=== PATIENT | female | born 1975 | race Caucasian/White ===

== ENCOUNTER 2016-07-28 09:28 | Emergency (ER) | payer OTHER ==
[~2016-07-28] VITALS: Ht 167.6 cm; Wt 70.0 kg
[~2016-07-28 09:28] MED LIST: CLON1 PO; LURA20TA PO; VIST50CA PO
[2016-07-28] MEDS ORDERED: SODIUM CHLOR 0.9% 1000 ML INJ 1,000 ML IV SCH (10:02)
[2016-07-28 10:11] VITALS: BP 150/95; PULSE 54; RESP 14; TEMP 98.2; O2SAT 98
[2016-07-28] MEDS ORDERED: ceFAZolin 2 GM PREMIX 50 ML IV ONE (10:15)
[2016-07-28] MEDS ORDERED: DIPHTH/TETANUS/ACEL PERTUSSIS (BOOSTER) 0.5 ML VIAL/PFS IM ONE (10:15)
[2016-07-28] MEDS ORDERED: ONDANSETRON HCL 4 MG/2 ML VIAL IVP ONE (10:15)
[2016-07-28] MEDS ORDERED: SODIUM CHLORIDE 0.9% FLUSH 10 ML FLUSH IVF PRN (10:15)
[2016-07-28 10:19] VITALS: BP 150/95; PULSE 50; PULSE 55; RESP 16; TEMP 98.2; O2SAT 98
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
[2016-07-28 11:45] LABS: AUTOMATED NEUTROPHIL # 15.9 TH/MM3 (1.8-7.7); BASOPHIL % 0.2 % (0.0-2.0); EOSINOPHIL # 0.1 TH/MM3 (0-0.4); EOSINOPHIL % 0.5 % (0.0-4.0); HEMATOCRIT 39.1 % (35.0-46.0); HEMO FLAGS DIFF FINAL; LYMPH % 10.6 % (9.0-44.0); LYMPHOCYTE # 2.1 TH/MM3 (1.0-4.8); MEAN CORPUSCULAR HEMOGLOBIN 28.7 PG (27.0-34.0); MONO % 7.1 % (0.0-8.0); NEUT % 81.6 % (16.0-70.0); PLATELET COUNT 296 TH/MM3 (150-450); RED CELL DISTRIBUTION WIDTH 13.2 % (11.6-17.2); WHITE BLOOD COUNT 19.5 TH/MM3 (4.0-11.0)
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
[2016-07-28 11:55] LABS: AMPHETAMINE, URINE NEG (NEG); BARBITURATES, URINE NEG (NEG); COCAINE, URINE POS (NEG)
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
[2016-07-28 12:10] LABS: BACTERIA, URINE MANY /hpf; BLOOD, URINE SMALL (NEG); COMMENT (UR) CATH-CULTURE IND; CULTURE IF INDICATED CATH CULTURE IND; GLUCOSE,URINE NEG (NEG); KETONE, URINE NEG (NEG); MUCUS URINE FEW /lpf (OCC); PH, URINE 5.5 (5.0-8.5); SQUAMOUS EPITHELIAL CELL URINE 2 /hpf (0-5); URINE COLOR YELLOW (YELLW/STRAW)
[2016-07-28 12:11] LABS: NITRITE,URINE POS (NEG)
[2016-07-28 12:29] VITALS: BP 157/103; PULSE 54; RESP 17; O2SAT 98
[2016-07-28] MEDS ORDERED: BACT800T5 PO (12:43)
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
[2016-07-28] MEDS ORDERED: LIDOCAINE 2%/EPINEPHrine 1:100,000 30ML MDV INFIL ONE (12:45)
[2016-07-28] MEDS ORDERED: IBUPROFEN 600 MG TAB PO ONE (13:30)
[2016-07-28] MEDS ORDERED: LIDOCAINE 1%/EPINEPHrine 1:100,000 SOLN 20 ML VIAL ONE (13:32)
[2016-07-28 14:58] VITALS: BP 167/92
== END 2016-07-28 15:00 | disposition home or self-care (01) ==
LOC: NEPE 09:28
DX: F31.9 Bipolar disorder, unspecified (principal); S59.901A Unspecified injury of right elbow, initial encounter; S99.911A Unspecified injury of right ankle, initial encounter; S00.81XA Abrasion of other part of head, initial encounter; S00.01XA Abrasion of scalp, initial encounter; N30.90 Cystitis, unspecified without hematuria; V49.50XA Passenger injured in collision with unspecified motor vehicles in traffic accident, initial encounter; Y93.9 Activity, unspecified; Y92.9 Unspecified place or not applicable; Y99.9 Unspecified external cause status; R55 Syncope and collapse; F19.10 Other psychoactive substance abuse, uncomplicated; F17.210 Nicotine dependence, cigarettes, uncomplicated
CPT/HCPCS: 70450; 71010; 72125; 72170; 73080; 73610; 73630; 80307; 81001; 84703; 85025; 87077; 87086; 87186; 90471; 90715; 96361; 96374; 96375; 99285; J0690; J2405; J7030; L1906; P9612

== ENCOUNTER 2017-01-29 11:41 | Emergency (ER) | payer SELFPAY ==
[~2017-01-29] VITALS: Ht 167.6 cm; Wt 80.0 kg
[~2017-01-29 11:41] MED LIST changes: +BACT800T5 PO; -CLON1 PO; -LURA20TA PO; -VIST50CA PO
[2017-01-29 11:44] VITALS: BP 156/102; PULSE 75; RESP 18; TEMP 98.5; O2SAT 98
[2017-01-29 11:56] VITALS: BP 144/89; PULSE 74; RESP 18; O2SAT 98
--- NOTE | 2017-01-29 12:07 | PD ---
HPI Chief Complaint: Alcohol/Drug Intoxication Time Seen by Provider: 11:56 Travel History International Travel<30 days: No Contact w/Intl Traveler<30days: No Traveled to known affect area: No History of Present Illness HPI 41-year-old female complains of heroin withdrawal. Last usage was 24 hours prior. Total body pain, most notably involving the hands, coupled with a sensation of anxiety and "alligator skin" on the main complaints. She also complains of a axillary abscess which is the third time in a row she's had a right axillary abscess. No fever. No chest pain or shortness of breath. PFSH Past Medical History Bipolar Disorder: Yes Cancer: No (Patient denies ) Cardiovascular Problems: No (Patient denies ) Diabetes: No Diminished Hearing: No Headaches: No (Patient denies ) Psychiatric: Yes (Bipolar ) Seizures: No (Patient denies ) Influenza Vaccination: No ?: Not Menopausal: No Past Surgical History Cholecystectomy: Yes Hysterectomy: Yes Social History Alcohol Use: No Tobacco Use: Yes (1/2 PPD) Substance Use: Yes (HEROIN) Allergies-Medications (Allergen,Severity, Reaction): Coded Allergies: bee venom protein (honey bee) (Unverified Allergy, Intermediate, swelling , 01/29/17) clindamycin (Unverified Allergy, Intermediate, facial swelling, 01/29/17) penicillin G (Unverified Allergy, Intermediate, 01/29/17) rash, gi upset *MDRO Multi-Drug Resistant Organism (Verified Adverse Reaction, Unknown, 01/29/17) ESBL E.Coli (urine)-07/28/16 Reported Meds & Prescriptions Reported Meds & Active Scripts Active Clonidine (Clonidine HCl) 0.1 Mg Tab 0.1 Mg PO BID Keflex (Cephalexin) 500 Mg Cap 500 Mg PO Q8H 7 Days Bactrim DS (Sulfamethoxazole-Trimethoprim) 800-160 Mg Tab 1 Tab PO BID Review of Systems Except as stated in HPI: all other systems reviewed are Neg General / Constitutional: No: Fever Psychiatric: Positive: Substance Abuse Physical Exam Narrative GENERAL: 41-year-old female well-nourished well-developed BMI 28.5 SKIN: Warm and dry. In the right axilla there is a somewhat linear shaped abscess about 2 cm wide by 4 cm long with a central white focus. There is no active draining. There area is quite tender. HEAD: Atraumatic. Normocephalic. EYES: Pupils equal and round. No scleral icterus. No injection or drainage. ENT: No nasal bleeding or discharge. Mucous membranes pink and moist. NECK: Trachea midline. No JVD. CARDIOVASCULAR: Regular rate and rhythm. RESPIRATORY: No accessory muscle use. Clear to auscultation. Breath sounds equal bilaterally. GASTROINTESTINAL: Abdomen soft, non-tender, nondistended. Hepatic and splenic margins not palpable. MUSCULOSKELETAL: Extremities without clubbing, cyanosis, or edema. No obvious deformities. NEUROLOGICAL: Awake and alert. No obvious cranial nerve deficits. Motor grossly within normal limits. Five out of 5 muscle strength in the arms and legs. Normal speech. PSYCHIATRIC: Anxiety from IV drug withdrawal. No suicidal ideation. Data Data Last Documented VS Vital Signs Date Time Temp Pulse Resp B/P (MAP) Pulse Ox O2 Delivery O2 Flow Rate FiO2 01/29/17 13:13 01/29/17 11:56 74 18 98 Room Air 01/29/17 11:44 98.5 vital signs reviewed Orders Orders Clonidine (Catapres) (01/29/17 12:15) Lidocaine 1% Inj (50 Ml) (Xylocaine 1% I (01/29/17 12:15) Abscess Culture And Gram Stain (01/29/17 12:15) Ed Discharge Order (01/29/17 12:35) MDM Medical Decision Making Medical Screen Exam Complete: Yes Emergency Medical Condition: Yes Medical Record Reviewed: Yes Differential Diagnosis IV drug abuse, withdrawal, cellulitis Narrative Course Patient has received clonidine. Clonidine prescribed. Bactrim and Keflex prescribed. Abscess I&D by ZOILA coyne. Pt is with her mother who will manage her clonidine script and monitor patient. Diagnosis Primary Impression: Cellulitis of axilla, right Referrals: [facility] call for appointment Med/Other Pt SpecificInfo: Prescription(s) given Scripts Clonidine (Clonidine) 0.1 Mg Tab 0.1 MG PO BID for Blood Pressure Management, #12 TAB 0 Refills Prov: Hieu Bob MD 01/29/17 Cephalexin (Keflex) 500 Mg Cap 500 MG PO Q8H for Infection for 7 Days, #21 CAP 0 Refills Prov: Hieu Bob MD 01/29/17 Sulfamethoxazole-Trimethoprim (Bactrim DS) 800-160 Mg Tab 1 TAB PO BID for Infection, #14 TAB 0 Refills Prov: Hieu Bob MD 01/29/17 Disposition: 01 DISCHARGE HOME Condition: Stable Hieu Bob MD Jan 29, 2017 12:07
[2017-01-29] MEDS ORDERED: CEPH-460 PO (12:11)
[2017-01-29] MEDS ORDERED: CLON0.1T PO ×3 (12:11→13:09)
[2017-01-29] MEDS ORDERED: BACT800T5 PO (12:11)
[2017-01-29] MEDS ORDERED: cloNIDine HCL 0.1 MG TAB PO ONE (12:15)
[2017-01-29] MEDS ORDERED: LIDOCAINE HCL 1% 50 ML VIAL INFIL ONE (12:15)
--- NOTE | 2017-01-29 12:32 | PD ---
Physical Exam Date Seen by Provider: Jan 29, 2017 Time Seen by Provider: 12:30 Data Data Last Documented VS Vital Signs Date Time Temp Pulse Resp B/P (MAP) Pulse Ox O2 Delivery O2 Flow Rate FiO2 01/29/17 11:56 74 18 144/89 (107) 98 Room Air 01/29/17 11:44 98.5 Orders Orders Clonidine (Catapres) (01/29/17 12:15) Lidocaine 1% Inj (50 Ml) (Xylocaine 1% I (01/29/17 12:15) Abscess Culture And Gram Stain (01/29/17 12:15) MDM Supervised Visit with BRANDON: No Narrative Course I was asked to evaluate this patient's right axillary abscess. The patient was initially seen by Dr. Bob. Please see his note for full H& P. On my exam there is an indurated area in the right axilla which measures about 2 cm in diameter. It is fluctuant but there is no pointing or drainage. There is a zone of inflammation around it but no lymphangitis.. Abscess I&D was performed. Please see my procedure note for details. Dr. Bob retains care of this patient. Please see his note for disposition. Procedures Procedure Narrative INCISION AND DRAINAGE OF ABSCESS: The area was prepped and was sterilely draped. A subcutaneous wheal of 1 % Xylocaine with a total number 2 mL was used to anesthetize the area properly. A number 11 scalpel was used to make a 1 -cm incision across the area of the abscess. The abscess was drained, complex loculations were broken down, and irrigated with normal saline. Cultures were obtained. Sterile dressing applied. Patient advised to keep the wound clean, dry and covered. Diagnosis Primary Impression: Cellulitis of axilla, right Referrals: [facility] call for appointment Patient Instructions: General Instructions, Cellulitis (ED) Departure Forms: Tests/Procedures Scripts Clonidine (Clonidine) 0.1 Mg Tab 0.1 MG PO BID for Blood Pressure Management, #3 TAB 0 Refills Prov: Hieu Bob MD 01/29/17 Cephalexin (Keflex) 500 Mg Cap 500 MG PO Q8H for Infection for 7 Days, #21 CAP 0 Refills Prov: Hieu Bob MD 01/29/17 Sulfamethoxazole-Trimethoprim (Bactrim DS) 800-160 Mg Tab 1 TAB PO BID for Infection, #14 TAB 0 Refills Prov: Hieu Bob MD 01/29/17 Disposition: 01 DISCHARGE HOME Condition: Stable Cassia Pena Jan 29, 2017 12:32
== END 2017-01-29 13:14 | disposition home or self-care (01) ==
LOC: PHED 11:41
DX: L03.111 Cellulitis of right axilla (principal); B95.62 Methicillin resistant Staphylococcus aureus infection as the cause of diseases classified elsewhere; Z16.19 Resistance to other specified beta lactam antibiotics; Z16.11 Resistance to penicillins; F31.9 Bipolar disorder, unspecified; F17.210 Nicotine dependence, cigarettes, uncomplicated
CPT/HCPCS: 10060; 86403; 87070; 87186; 87205